=== PATIENT | male | born 1985 | race American Indian/Alaskan Native ===

== ENCOUNTER 2016-11-15 17:33 | Emergency (ER) | payer MEDICAID ==
--- NOTE | 2016-11-15 17:58 | Emergency Department Report ---
Chief Complaint: Hyperglycemia Stated Complaint: DIABETIC Time Seen by Provider: 11/15/16 17:52 - HPI History of Present Illness: pt has been off his dm medication for two years. pt c/o failure to get an erection. pt also c/o random aches - Exam Vital Signs: Vital Signs 11/15/16 17:50 Temperature 98.3 F Pulse Rate 87 Respiratory 18 Rate Blood Pressure 156/86 O2 Sat by Pulse 99 Oximetry Physical Exam: pt looks well, non toxic gcs 15 MSE screening note: Focused history and physical exam performed. Due to findings the following was ordered: labs ED Disposition for MSE Condition: Stable
[2016-11-15 18:29] LABS: Basophils % (Auto) 0.7 % (0.0-1.8); Eosinophils % (Auto) 4.1 % (0.0-4.3); Hematocrit 46.4 % (35.5-45.6); Hemoglobin 15.4 gm/dl (11.8-15.2); Mean Corpuscular HGB Conc 33 % (32-34); Mean Corpuscular Hemoglobin 29 pg (28-32); Mean Corpuscular Volume 87 fl (84-94); Platelet Count 217 K/mm3 (140-440); Red Blood Count 5.36 M/mm3 (3.65-5.03); Red Cell Distribution Width 14.3 % (13.2-15.2); White Blood Count 7.2 K/mm3 (4.5-11.0)
[2016-11-15 18:31] LABS: Urine Drugs of Abuse Note Disclamer
[2016-11-15 18:38] LABS: Alanine Aminotransferase 30 units/L (7-56); Albumin 4.3 g/dL (3.9-5); Albumin/Globulin Ratio 1.7 %; Alkaline Phosphatase 75 units/L (35-129); Anion Gap 17 mmol/L; Blood Urea Nitrogen 12 mg/dL (9-20); Calcium 8.9 mg/dL (8.4-10.2); Carbon Dioxide 28 mmol/L (22-30); Chloride 98.6 mmol/L (98-107); Glucose 227 mg/dL (75-100); Potassium 4.1 mmol/L (3.6-5.0); Sodium 139 mmol/L (137-145); Total Protein 6.9 g/dL (6.3-8.2)
[2016-11-15 19:03] LABS: Mucus,Urine FEW /HPF
[2016-11-15 19:23] LABS: Creatine Kinase 283 units/L (55-170); Lipase 33 units/L (13-60)
[2016-11-15 19:24] LABS: Bilirubin,Urine NEG (Negative); Blood,Urine NEG (Negative); Ketones,Urine NEG (Negative); Leukocyte Esterase,Urine NEG (Negative); Nitrite,Urine NEG (Negative); Protein,Urine <15 mg/dL mg/dL (Negative)
--- NOTE | 2016-11-16 06:47 | Emergency Department Report ---
HPI - General Chief Complaint: Hyperglycemia Time Seen by Provider: 11/15/16 17:52 - HPI HPI: pt has been off his dm medication for two years. pt c/o failure to get an erection. pt also c/o random aches. Pt states glucose about 200-300 at home. no chest pain, no n/v, no sob, no fever. ED Past Medical Hx - Past Medical History Previous Medical History?: Yes Hx Diabetes: Yes - Surgical History Past Surgical History?: No - Family History Family history: hypertension - Social History Smoking Status: Current Every Day Smoker - Medications Home Medications: Home Medications Medication Instructions Recorded Confirmed Last Taken Type metFORMIN [Glucophage] 500 mg PO BID #60 tablet 11/16/16 Unknown Rx ED Review of Systems ROS: Stated complaint: DIABETIC Other details as noted in HPI Comment: All other systems reviewed and negative Endocrine: no symptoms reported, increased thirst, increased urine Gastrointestinal: as per HPI Genitourinary: as per HPI Physical Exam - Physical Exam Vital Signs: Vital Signs 11/15/16 11/16/16 17:50 02:28 Temperature 98.3 F 98.2 F Pulse Rate 87 63 Respiratory 18 18 Rate Blood Pressure 156/86 114/74 O2 Sat by Pulse 99 99 Oximetry Physical Exam: gen: alert and oriented x3 heent: perrla, eomi cv: rrr, nl s1, s2 lungs: cta bila abd: s,nt,nd, pos bs ext: no edema gu: pt refused neuro: no deficits psych: normal mood, ED Course Vital Signs 11/15/16 11/16/16 17:50 02:28 Temperature 98.3 F 98.2 F Pulse Rate 87 63 Respiratory 18 18 Rate Blood Pressure 156/86 114/74 O2 Sat by Pulse 99 99 Oximetry ED Medical Decision Making - Lab Data Result diagrams: 11/15/16 18:04 11/15/16 18:04 Critical care attestation.: If time is entered above; I have spent that time in minutes in the direct care of this critically ill patient, excluding procedure time. ED Disposition Clinical Impression: Hyperglycemia, Erectile disorder due to medical condition in male Disposition: DC-01 TO HOME OR SELFCARE Is pt being admited?: No Does the pt Need Aspirin: No Condition: Stable Instructions: Erectile Dysfunction (ED), Diabetes Mellitus Type 2 in Adults (ED ) Prescriptions: metFORMIN [Glucophage] 500 mg PO BID #60 tablet Referrals: PRIMARY CARE, [Primary Care Provider] - 3-5 Days ZULEMA PIÑA MD [Staff Physician] - 3-5 Days AILYN MAURICIO MD [Referring] - 3-5 Days
[2016-11-16 08:41] VITALS: BP 126/72
== END 2016-11-16 08:45 | disposition home or self-care (01) ==
LOC: ED 17:33
DX: E11.65 Type 2 diabetes mellitus with hyperglycemia (principal); N52.1 Erectile dysfunction due to diseases classified elsewhere; F17.200 Nicotine dependence, unspecified, uncomplicated
CPT/HCPCS: 36415; 80053; 80307; 81001; 82550; 82805; 82962; 83690; 85025; 99283; G0480; 80320